=== PATIENT | male | born 1955 | race Caucasian/White ===

== ENCOUNTER → 2021-03-19 | Outpatient (CLI) | payer OTHER, SELFPAY ==
[~2021-03-19] MED LIST: ASPIRIN 325MG325 MG PO; AZITHROMYCIN500 MG PO; BENADRYL 25MG C25 MG PO; BENTYL 20MG TAB20 MG PO; COL-RITE250 MG PO; COREG6.25 MG PO; DIOVAN HCT 1601 EACH PO; GLUCOPHAGE500 MG PO; IBUPROFEN600 MG PO; LANTUS100 UNIT/1 SQ; LIPITOR TAB 2020 MG PO; LODINE CAP 300300 MG PO; NEXIUM20 MG PO; NORCO 5-325 TA1 EACH PO; NORCO 7.5-3251 EACH PO; NORVASC10 MG PO; NOVOLOG SQ; PERCOCET 7.5-31 EACH PO; TUMS ULTRA400 MG PO; VITAMIN D32000 UNI1 PO; ZANAFLEX4 MG PO; ZOFRAN ODT 4 MG4 MG PO; ZOFRAN4 MG PO
== END ==
LOC: KOH-I 13:43
DX: M54.31 Sciatica, right side (principal); M16.0 Bilateral primary osteoarthritis of hip
CPT/HCPCS: 73522

== ENCOUNTER → 2021-03-27 | Outpatient (CLI) | payer OTHER, SELFPAY | LOC: KOH-I 14:52 | DX: M25.551 Pain in right hip (principal); M16.11 Unilateral primary osteoarthritis, right hip | CPT/HCPCS: 73700 ==

== ENCOUNTER 2021-05-01 13:35 | Emergency (ER) | payer OTHER ==
[2021-05-01 14:21] LABS: HEMOGLOBIN 13.6 gm/dl (14.0-17.5); RED BLOOD COUNT 4.42 M/UL (4.20-5.50); WHITE BLOOD COUNT 5.7 K/UL (4.5-11.0)
[2021-05-01 14:42] LABS: BUN/CREATININE RATIO 15 (0-10)
== END 2021-05-01 16:42 | disposition home or self-care (01) ==
LOC: ER1 13:35
PROVIDERS: Emergency Medicine
DX: E11.649 Type 2 diabetes mellitus with hypoglycemia without coma (principal); M54.31 Sciatica, right side; I10 Essential (primary) hypertension; Z90.89 Acquired absence of other organs; Z88.0 Allergy status to penicillin; Z79.4 Long term (current) use of insulin
CPT/HCPCS: 80053; 82550; 82553; 82962; 83874; 84484; 85025; 93005; 96374; 99285

== ENCOUNTER 2021-06-04 23:21 | Emergency (ER) | payer OTHER ==
[2021-06-05] MEDS ORDERED: NEURONTIN 100100 MG PO (01:11)
== END 2021-06-05 01:30 | disposition home or self-care (01) ==
LOC: ER1 23:21
DX: I10 Essential (primary) hypertension (principal); M54.31 Sciatica, right side; E11.9 Type 2 diabetes mellitus without complications; Z90.89 Acquired absence of other organs
CPT/HCPCS: 93005; 99283

== ENCOUNTER 2022-05-05 21:57 | Emergency (ER) | payer MEDICARE ==
[~2022-05-05] VITALS: Ht 182.9 cm; Wt 108.9 kg
[~2022-05-05 21:57] MED LIST changes: -ASPIRIN 325MG325 MG PO; +ASPIRIN EC81 MG PO; +HUMALOG100 UNIT/3 SQ; +NEURONTIN 100100 MG PO; -NORVASC10 MG PO; +NORVASC5 MG PO; -NOVOLOG SQ; +VITAMIN D21250 MCG PO; -VITAMIN D32000 UNI1 PO
[2022-05-05 22:22] LABS: RED BLOOD COUNT 4.25 M/UL (4.20-5.50); WHITE BLOOD COUNT 6.6 K/UL (4.5-11.0)
[2022-05-05 22:45] LABS: BUN/CREATININE RATIO 12 (0-10)
[2022-05-06] MEDS ORDERED: DIOVAN320 MG PO (09:45)
[2022-05-06] MEDS ORDERED: PROTONIX40 MG PO (09:46)
[2022-05-06] MEDS ORDERED: ISOSORBIDE MONO30 MG PO (09:47)
[2022-05-06] MEDS ORDERED: VITAMIN B-121000 MC3 PO (09:48)
[2022-05-06] MEDS ORDERED: PROBIOTIC1 EACH PO (09:49)
[2022-05-06] MEDS ORDERED: ATORVASTATIN CA20 MG PO (12:31)
== END 2022-05-06 13:05 | disposition home or self-care (01) ==
LOC: ER1 21:57 → CDU 05-06 01:44
PROVIDERS: Physician Assistant Medical
DX: G45.9 Transient cerebral ischemic attack, unspecified (principal); E11.9 Type 2 diabetes mellitus without complications; I25.2 Old myocardial infarction; I10 Essential (primary) hypertension; E78.5 Hyperlipidemia, unspecified; Z86.73 Personal history of transient ischemic attack (TIA), and cerebral infarction without residual deficits; Z95.5 Presence of coronary angioplasty implant and graft; Z90.89 Acquired absence of other organs; Z79.82 Long term (current) use of aspirin; Z88.0 Allergy status to penicillin
CPT/HCPCS: 70450; 70496; 70498; 80053; 81001; 82550; 82553; 84484; 85025; 93005; 96372; 99284; J1650; Q9967

== ENCOUNTER 2022-05-31 20:23 | Emergency (ER) | payer MEDICARE ==
[~2022-05-31 20:23] MED LIST changes: +ATORVASTATIN CA20 MG PO; +DIOVAN320 MG PO; +ISOSORBIDE MONO30 MG PO; +PROBIOTIC1 EACH PO; +PROTONIX40 MG PO; +VITAMIN B-121000 MC3 PO
[2022-05-31 21:11] LABS: HEMOGLOBIN 13.4 gm/dl (14.0-17.5); RED BLOOD COUNT 4.38 M/UL (4.20-5.50); WHITE BLOOD COUNT 8.9 K/UL (4.5-11.0)
== END 2022-06-01 00:02 | disposition home or self-care (01) ==
LOC: ER1 20:23
PROVIDERS: Student in an Organized Health Care Education/Training Program
DX: R07.9 Chest pain, unspecified (principal); I25.10 Atherosclerotic heart disease of native coronary artery without angina pectoris; I10 Essential (primary) hypertension; E11.9 Type 2 diabetes mellitus without complications; Z88.0 Allergy status to penicillin; Z20.822 Contact with and (suspected) exposure to COVID-19
CPT/HCPCS: 0240U; 71045; 80053; 82550; 82553; 84484; 85025; 93005; 99285